=== PATIENT | female | born 1935 | race Caucasian/White ===

== ENCOUNTER 2016-08-21 13:40 | Emergency (ER) | payer MEDICARE, OTHER ==
[2016-08-21 14:11] VITALS: BP 122/71
--- NOTE | 2016-08-21 15:22 | EDM.PDOC ---
ED HPI GENERAL MEDICAL PROBLEM - General Chief Complaint: Genitourinary Problem Stated Complaint: VAGINAL BLEEDING Time Seen by Provider: 08/21/16 14:35 Source of Information: Reports: Patient, Family History Limitations: Reports: No Limitations - History of Present Illness Onset Date: 08/19/16 Duration: Day(s):, Other (spotting started on 08/19/16 and progressed to lanny hematuria) Location: Reports: Abdomen Quality: Reports: Ache, Other (Aching lower abdominal cramping pain at time. s) denies Pain Score (Numeric/FACES): 2 - Related Data Allergies Allergy/AdvReac Type Severity Reaction Status Date / Time acetaminophen Allergy Nausea Verified 08/21/16 14:19 [From Darvocet-N] clindamycin Allergy Nausea Verified 08/21/16 14:19 codeine Allergy Rash Verified 08/21/16 14:19 hazelnut Allergy Airway Verified 08/21/16 14:19 Tightness hydroxychloroquine Allergy Rash Verified 08/21/16 14:19 [From Plaquenil] morphine Allergy Nausea Verified 08/21/16 14:19 Penicillins Allergy Rash Verified 08/21/16 14:19 propoxyphene Allergy Nausea Verified 08/21/16 14:19 [From Darvocet-N] quinine Allergy Rash Verified 08/21/16 14:19 sevelamer [From Renvela] Allergy Nausea Verified 08/21/16 14:19 solifenacin [From Vesicare] Allergy Headache Verified 08/21/16 14:19 tramadol [From Ultracet] Allergy Rash Verified 08/21/16 14:19 Home Meds: Home Meds Biotin 1 cap PO DAILY 08/21/16 [History] Bumetanide 3 mg PO ASDIRECTED 08/21/16 [History] Carvedilol 2 tab PO ASDIRECTED 08/21/16 [History] ClonazePAM [KlonoPIN] 1 mg PO BEDTIME 08/21/16 [History] Folic Acid/Vitamin B Comp W-C [Dialyvite] 1 tab PO DAILY 08/21/16 [History] Lanthanum Carbonate [Fosrenol] 500 mg PO TID 08/21/16 [History] Levothyroxine 125 mcg PO DAILY 08/21/16 [History] Warfarin [Coumadin] 2.5 mg PO ASDIRECTED 08/21/16 [History] cycloSPORINE [Restasis] 1 drop TOP DAILY 08/21/16 [History] Past Medical History HEENT History: Reports: Impaired Vision Cardiovascular History: Reports: Afib, Heart Failure, Heart Murmur, Hypertension , Pacemaker Respiratory History: Reports: Pneumonia, Recurrent, Other (See Below) Other Respiratory History: on home O2 @ 2L Gastrointestinal History: Reports: Fecal Incontinence Genitourinary History: Reports: Dialysis, Renal Disease, Other (See Below) Other Genitourinary History: dialysis 3 times per week SOCIAL SERVICES AIDE History: Reports: None Musculoskeletal History: Reports: Arthritis, Back Pain, Chronic, Other (See Below) Other Musculoskeletal History: stenosis of back Neurological History: Reports: CVA, Neuropathy, Peripheral Endocrine/Metabolic History: Reports: Hypothyroidism Hematologic History: Reports: Anemia, Iron Deficiency Oncologic (Cancer) History: Reports: Basal Cell Carcinoma, Malignant Melanoma Dermatologic History: Reports: Melanoma, Other (See Below) Other Dermatologic History: basal cell carcinoma, 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 - Infectious Disease History Infectious Disease History: Reports: Chicken Pox, Measles, Mumps, Shingles - Past Surgical History HEENT Surgical History: Reports: Cataract Surgery Cardiovascular Surgical History: Reports: Coronary Artery Bypass, Valve Replacement GI Surgical History: Reports: Appendectomy, Cholecystectomy, Hernia Repair/Other Female Surgical History: Reports: None Musculoskeletal Surgical History: Reports: Knee Replacement, Shoulder Replacement, Other (See Below) Other Musculoskeletal Surgeries/Procedures:: L4-L5 fusion, right knee replacement, bilateral shoulder replacements Social & Family History - Tobacco Use Smoking Status *Q: Never Smoker - Recreational Drug Use Recreational Drug Use: No ED ROS GENERAL - Review of Systems Review Of Systems: See Below Constitutional: Denies: Fever, Chills, Malaise, Weakness, Fatigue, Night Sweats , Diaphoresis HEENT: Reports: No Symptoms Respiratory: Denies: Shortness of Breath, Wheezing, Cough, Sputum, Hemoptysis Cardiovascular: Reports: Other (She does have a history of atrial fibrillation and is on anticoagulants). Denies: Chest Pain, Blood Pressure Problem, Dyspnea on Exertion, Edema, Lightheadedness, Palpitations, PND, Syncope Endocrine: Reports: No Symptoms GI/Abdominal: Reports: Abdominal Pain. Denies: Black Stool, Bloody Stool, Constipation, Diarrhea, Distension, Hematemesis, Hematochezia, Nausea, Vomiting : Reports: Frequency, Hematuria. Denies: Discharge, Dysuria, Flank Pain, Incontinence, Pain Musculoskeletal: Denies: No Symptoms Skin: Denies: Cyanosis, Diaphoresis, Bruising, Rash, Erythema, Wound Neurological: Denies: Numbness, Seizure, Syncope, Tingling, Weakness Psychiatric: Reports: No Symptoms Hematologic/Lymphatic: Reports: Anemia, Easy Bleeding, Easy Bruising, Other ( Patient is anticoagulated) Immunologic: Reports: No Symptoms Free Text/Narrative/Comment: Patient also has a history of calciphylaxis. ED EXAM, RENAL/ - Physical Exam Exam: See Below Exam Limited By: No Limitations General Appearance: Alert, WD/WN, No Apparent Distress Eye Exam: Bilateral Eye: Normal Inspection, PERRL Ears: Normal External Exam, Normal Canal, Hearing Grossly Normal, Normal TMs Nose: Normal Inspection, Normal Mucosa, No Blood Throat/Mouth: Normal Inspection, Normal Lips, Normal Teeth, Normal Gums, Normal Oropharynx, Normal Voice, No Airway Compromise Head: Atraumatic, Normocephalic Neck: Normal Inspection, Supple, Non-Tender, Full Range of Motion Respiratory/Chest: No Respiratory Distress, Lungs Clear, Normal Breath Sounds, No Accessory Muscle Use, Chest Non-Tender Cardiovascular: Normal Peripheral Pulses, No Edema, No Gallop, No Murmur, No Rub , Irregularly Irregular, Other (Atrial fibrillation) GI/Abdominal: Normal Bowel Sounds, Soft, No Organomegaly, No Distention, No Mass , Tender, Other (Tenderness in lower quadrants. ). No: Guarding, Rigid, Rebound , Mass Back Exam: Normal Inspection, Full Range of Motion. No: CVA Tenderness (R), CVA Tenderness (L) Extremities: Normal Inspection, Normal Range of Motion, Non-Tender, Other ( Trace pedal edema, chronic small wounds to bilateral lower legs, no signs of erythema, drainage or infections. ) Neurological: Alert, Oriented, CN II-XII Intact, Normal Cognition, Normal Gait, No Motor/Sensory Deficits Psychiatric: Normal Affect, Normal Mood Skin Exam: Warm, Dry, No Rash, Other (Chronic leg wounds/ulcers to bilateral lower extremities, all less then 0.5 cm, no weeping, drainage ore erythema at this time. ) Lymphatic: No Adenopathy Course - Vital Signs Last Recorded V/S: Last Vital Signs Temp 36.5 C 08/21/16 14:08 Pulse 65 08/21/16 14:08 Resp 16 08/21/16 14:08 BP 122/71 08/21/16 14:08 Pulse Ox 98 08/21/16 14:08 - Orders/Labs/Meds Labs: Laboratory Tests 08/21/16 08/21/16 Range/Units 15:27 16:08 PT 29.9 H (9.5-12.0) sec INR 2.73 H (0.80-1.20) APTT 39.5 H (27.0-36.0) sec Urine Color Red Urine Appearance Turbid Urine pH 7.0 (4.5-8.0) Ur Specific [place] 1.010 (1.008-1.030) Urine Protein 500 H (NEGATIVE) mg/dL Urine Glucose (UA) Normal (NEGATIVE) mg/dL Urine Ketones Negative (NEGATIVE) mg/dL Urine Occult Blood Large (NEGATIVE) Urine Nitrite Negative (NEGATIVE) Urine Bilirubin Negative (NEGATIVE) Urine Urobilinogen Normal (NORMAL) mg/dL Ur Leukocyte Esterase Moderate (NEGATIVE) Urine RBC Packed H (0-5) Urine WBC 5-10 H (0-5) Ur Epithelial Cells Not seen Amorphous Sediment Not seen Urine Bacteria Few Urine Mucus Not seen Patient lab work reviewed. Lab work and patient status discussed with Dr. Winston. No change to warfarin at this time, patient anticoagulated appropriately. Patient will report to dialysis for her run. She will then return to the ER for completion of abdominal CT without contrast due to lanny hematuria. Return earlier for any worsening of symptoms. - Re-Assessments/Exams Free Text/Narrative Re-Assessment/Exam: 08/21/16 16:00 Patient to have bladder ultrasound. Ultrasound not completed, bladder empty, inconclusive data. Free Text/Narrative Re-Assessment/Exam: 08/21/16 16:38 Patient primary care provider notified of patient status. She will place a urology referral for [place]. Departure - Departure Time of Disposition: 16:35 Disposition: Home, Self-Care 01 Condition: fair Clinical Impression: Lanny hematuria - Discharge Information Instructions: Hematuria, Adult Referrals: PCP,None [Primary Care Provider] - Forms: ED Department Discharge Additional Instructions: Return to the ER after dialysis for completion of an abdominal CT without contrast. - Assessment/Plan Assessment:: Alert and oriented 80 year old female with lanny hematuria, chronic anticoagulation due to atrial fibrillation, history of valve replacement, use of dialysis [id number] for chronic kidney disease. Plan: Patient will be discharged to dialysis, complete dialysis run and routine lab work during dialysis. She will return the to ER after her dialysis run at 2100 to [address] for completion of outpatient CT scan Abdomen/pelvis for lanny hematuria. The results will be faxed to her primary care provider. Her primary care provider is setting up a urology referral.
== END 2016-08-21 16:48 | disposition home or self-care (01) ==
LOC: JP.ED 13:40
DX: R31.0 Gross hematuria (principal); I48.91 Unspecified atrial fibrillation; I11.0 Hypertensive heart disease with heart failure; I50.9 Heart failure, unspecified; M19.90 Unspecified osteoarthritis, unspecified site; Z85.820 Personal history of malignant melanoma of skin; Z79.01 Long term (current) use of anticoagulants; Z98.49 Cataract extraction status, unspecified eye; Z95.1 Presence of aortocoronary bypass graft; Z95.2 Presence of prosthetic heart valve; Z90.49 Acquired absence of other specified parts of digestive tract; Z96.659 Presence of unspecified artificial knee joint; Z96.619 Presence of unspecified artificial shoulder joint; Z98.1 Arthrodesis status; Z98.890 Other specified postprocedural states; Z79.899 Other long term (current) drug therapy; Z88.0 Allergy status to penicillin; Z88.1 Allergy status to other antibiotic agents; Z88.5 Allergy status to narcotic agent; Z88.8 Allergy status to other drugs, medicaments and biological substances; N26.1 Atrophy of kidney (terminal); N20.0 Calculus of kidney; I25.10 Atherosclerotic heart disease of native coronary artery without angina pectoris; R10.31 Right lower quadrant pain; R10.32 Left lower quadrant pain; Z86.73 Personal history of transient ischemic attack (TIA), and cerebral infarction without residual deficits; Z87.01 Personal history of pneumonia (recurrent); Z86.2 Personal history of diseases of the blood and blood-forming organs and certain disorders involving the immune mechanism
CPT/HCPCS: 36415; 74176; 81001; 85610; 85730; 99283; 99284